=== PATIENT | male | born 1945 | race Caucasian/White ===

== ENCOUNTER → 2020-09-21 | Outpatient (CLI) | payer BC, OTHER ==
--- NOTE | 2020-09-22 11:00 | ECHOF ---
Referral Reason:I42.9 Cardiomyopathy MEASUREMENTS -------- HEIGHT: 170.2 cm WEIGHT: 74.4 kg BP: 178/86 RVIDd: 3.2 cm (< 3.3) IVSd: 1.3 cm (0.6 - 1.1) LVIDd: 4.7 cm (3.9 - 5.3) LVPWd: 1.1 cm (0.6 - 1.1) IVSs: 1.7 cm LVIDs: 3.1 cm LVPWs: 1.7 cm LA Diam: 3.6 cm (2.7 - 3.8) LAESV Index (A-L): 28.12 ml/m Ao Diam: 3.4 cm (2.0 - 3.7) AV Cusp: 1.5 cm (1.5 - 2.6) MV EXCURSION: 18.872 mm (> 18.000) MV EF SLOPE: 73 mm/s (70 - 150) EPSS: 1.4 cm MV E Ronn: 1.26 m/s MV DecT: 125 ms MV A Ronn: 1.10 m/s MV E/A Ratio: 1.14 AR PHT: 598 ms RAP: 5.00 mmHg RVSP: 31.33 mmHg FINDINGS -------- Sinus rhythm. This was a technically good study. The left ventricular size is normal. There is mild concentric left ventricular hypertrophy. Overa ll left ventricular systolic function is normal with, an EF between 60 - 65 %. The right ventricle is normal in size. Normal LA size by volume 22+/-6 ml/m2. The right atrium is normal in size. Interatrial and interventricular septum intact. There is mild aortic valve sclerosis. There is mild aortic regurgitation. The mitral valve leaflets are mildly thickened. Mild mitral annular calcification present. Mild-t o-moderate mitral regurgitation is present. Mild tricuspid regurgitation present. Right ventricular systolic pressure is normal at < 35 mmHg. Trace/mild (physiologic) pulmonic regurgitation. The aortic root size is normal. IVC Not well visulized. There is no pericardial effusion. CONCLUSIONS -------- 1. The left ventricular size is normal. 2. There is mild concentric left ventricular hypertrophy. 3. Overall left ventricular systolic function is normal with, an EF between 60 - 65 %. 4. There is mild aortic valve sclerosis. 5. There is mild aortic regurgitation. 6. The mitral valve leaflets are mildly thickened. 7. Mild mitral annular calcification present. 8. [id number] mitral regurgitation is present. 9. Mild tricuspid regurgitation present. 10. Trace/mild (physiologic) pulmonic regurgitation. 11. There is no pericardial effusion. ENGRAVER LETTER: Toma Bergman RDCS
== END | disposition home or self-care (01) ==
LOC: RADECHMAIN 16:07
PROVIDERS: ATTEND Family Medicine
DX: I08.3 Combined rheumatic disorders of mitral, aortic and tricuspid valves (principal); I37.1 Nonrheumatic pulmonary valve insufficiency
CPT/HCPCS: 93306

== ENCOUNTER → 2023-06-14 | Outpatient (CLI) | payer OTHER ==
--- NOTE | 2023-06-18 11:56 | MR ---
EXAMINATION TYPE: MR kidney wo/w con DATE OF EXAM: 06/14/2023 6:52 AM CLINICAL INDICATION:Male, 77 years old with history of D41.02 LEFT RENAL MASS; COMPARISON: CT scan abdomen from 06/04/2023 outside institution.. TECHNIQUE: Multiplanar multi-sequence imaging was performed without contrast. Post contrast imaging was performed. Post IV contrast subtraction images were also submitted for review. IV Contrast: 7 cc Gadavist FINDINGS: LOWER CHEST: No gross irregularity. ABDOMEN Liver: No evidence for hepatic steatosis or cirrhosis. Gallbladder and Bile ducts: No evidence for ductal dilation, or biliary stricture or evidence of chol edocholithiasis. The gallbladder is within normal limits. Pancreas: No ductal dilation. No evidence for solid mass. Spleen: Normal for size. Adrenal glands: Unremarkable. Kidneys: Right upper pole renal mass measuring 6.8 x 5.3 x 7.2 cm is predominantly exophytic with ext ension down into the mid kidney. No evidence for extension into the vein at this time. There is signa l dropout on chemical shift of phase imaging compatible with microscopic fat. Adjacent to this large mass medially is a high T1 pronation/hemorrhagic cyst measuring up to 13 mm without postcontrast enha ncement. Resolution of prior left-sided hydronephrosis. No suspicious left renal masses. Stomach and Bowel: No evidence for bowel wall thickening or evidence for obstruction.. Peritoneum: No evidence of pneumoperitoneum or free fluid. Vasculature: No aortic aneurysm. Musculoskeletal: The osseous structures appear intact. Lymph Nodes: No gross evidence for lymphadenopathy. Abdominal wall: Unremarkable. IMPRESSION: Findings are confirmed with left renal superior pole mass measuring up to 7.2 cm which is partially e xophytic and is most compatible with renal cell carcinoma until proven otherwise. Urology consultatio n if not already performed is recommended. No evidence for metastatic disease at this time.
== END | disposition home or self-care (01) ==
LOC: RADMRIMAIN 05:57
PROVIDERS: ATTEND Urology
DX: D41.02 Neoplasm of uncertain behavior of left kidney (principal)
CPT/HCPCS: 74183; A9585

== ENCOUNTER → 2023-07-02 | Outpatient (CLI) | payer OTHER ==
[2023-07-02 16:55] LABS: HCT 41.4 % (39.6-50.0); HGB 13.4 d/dL (13.0-17.0); MCH 31.3 pg (27.0-32.0); MCHC 32.4 d/dL (32.0-37.0); MCV 96.7 FL (80.0-97.0); Mean Platelet Volume 11.3 FL (9.5-12.2); NRBC Per 100 WBC 0 X 10*3/uL (0.00-0.01); Platelet Count 273 X 10*3/uL (140-440); RBC 4.28 X 10*6/uL (4.40-5.60); RDW 12.6 % (11.5-14.5); WBC 8.55 X 10*3/uL (4.50-10.00)
[2023-07-02 19:09] LABS: BUN/Creat Ratio 18.06 Ratio (12.00-20.00); Blood Urea Nitrogen 30.7 mg/dL (9.0-27.0); Calcium 10.1 mg/dL (8.7-10.3); Carbon Dioxide 24.4 mmol/L (21.6-31.8); Chloride 105 mmol/L (96-109); Glucose 94 mg/dL (70-110); Potassium 4.9 mmol/L (3.5-5.5); Sodium 140 mmol/L (135-145)
== END | disposition home or self-care (01) ==
LOC: LABWHC1 09:20
PROVIDERS: ATTEND Urology
DX: Z01.812 Encounter for preprocedural laboratory examination (principal); D41.01 Neoplasm of uncertain behavior of right kidney
CPT/HCPCS: 36415; 80048; 85027; 86850; 86900; 86901

== ENCOUNTER 2023-07-10 05:40 | Inpatient (IN) | payer OTHER ==
--- NOTE | 2023-07-06 08:00 | P.HPIHPCON ---
History of Present Illness H&P Date: 07/06/23 Chief Complaint: Right-sided renal mass This is a 77-year-old male with history of a 7.2 cm right-sided renal mass. I reviewed the images with him I discussed with him this is highly concerning for renal cell carcinoma. Discussed given the size of the mass and the degree of invasion is not amenable to a partial nephrectomy. Option of a radical nephrectomy was discussed with him in details. Discussed given his previous abdominal surgery this will be challenging to do this robotically an open approach as the alternative. Discussed risk of bleeding, infection, injury to nearby organs. Discussed also potential of needing additional treatments for his cancer, and potential of cancer recurrence. Discussed also potential that he might require hemodialysis in the short and shelter following the nephrectomy. Risk of anesthesia was also discussed. He understood all the risk and agreed to proceed Consent for Procedure: I have explained the operation/procedure to the patient, including the risks, benefits, side effects, alternative therapies (including not receiving the proposed treatment or service), the likelihood of the patient achieving his/her goals, and potential recuperation problems for the procedure/sedation/analgesia, as well as any blood products, if indicated. I also explained to the patient the risks, benefits and side effects of the alternatives, as well as the risks related to not receiving the proposed procedure, care, treatment, or services. Past Medical History Past Medical History: Osteoarthritis (OA) Additional Past Medical History / Comment(s): KNEE PAIN. History of Any Multi-Drug Resistant Organisms: None Reported Past Surgical History: Back Surgery Additional Past Surgical History / Comment(s): ABDOMINAL SURGERY AFTER FOOD STUCK IN ESOPAGUS?- STATES HE HAD MESH AND HAD TO HAVE SURGERY AGAIN. Past Anesthesia/Blood Transfusion Reactions: No Reported Reaction Past Psychological History: No Psychological Hx Reported Smoking Status: Former smoker Past Alcohol Use History: None Reported Past Drug Use History: None Reported - Past Family History Father Family Medical History: Cancer Additional Family Medical History / Comment(s): LUNG CANCER Medications and Allergies Home Medications Medication Instructions Recorded Confirmed Type Ibuprofen [Advil] 400 mg PO Q8HR PRN 02/14/16 02/15/16 History Acetaminophen [Tylenol] 325 mg PO Q4H 02/15/16 02/15/16 History Allergies Allergy/AdvReac Type Severity Reaction Status Date / Time Penicillins Allergy Unknown Rash/Hives Verified 06/05/23 10:52 Surgical - Exam - General no distress, no pain - Eyes normal ocular movement, no pale - ENT normal nares, normal mucosa - Respiratory normal expansion, normal respiratory effort - Abdomen Abdomen: soft, non tender, no distended Assessment and Plan Assessment: Or for open right radical nephrectomy
[~2023-07-10 05:40] MED LIST: CLINDAMYCIN 600 MG in DEXTROSE 5% IN WATER 50 ML IVPB PRN; DEXAMETHASONE SOD PHOSPHATE 4 MG/ML 1 ML VIAL IV ONE; GENTAMICIN 120 MG in SODIUM CHLORIDE 0.9% 100 ML IVPB PRN; HYDROmorphone 0.5 MG/0.5 ML SYRINGE IVP PRN; LIDOCAINE 1% (10MG/ML) FOR IV START INTRADERMA PRN; MIDAZOLAM 2 MG/2 ML VIAL IV PRN; ONDANSETRON 4 MG/2 ML VIAL IVP ONE
[2023-07-10] MEDS ORDERED: LACTATED RINGERS 1,000 ML IV ONE ×4 (06:06→08:17)
[2023-07-10 06:59] LABS: African American GFR (CKD) 49 (>60 ml/min/1.73 sqM); Anion Gap 11 mmol/L; Blood Urea Nitrogen 31 mg/dL (9-20); Calcium 10.1 mg/dL (8.4-10.2); Carbon Dioxide 23 mmol/L (22-30); Chloride 108 mmol/L (98-107); Glucose 78 mg/dL (74-99); Non-African American GFR(CKD) 42 (>60 ml/min/1.73 sqM); Sodium 142 mmol/L (137-145)
[2023-07-10 07:00] LABS: Potassium 4.7 mmol/L (3.5-5.1)
[2023-07-10] MEDS ORDERED: NEOSTIGMINE 1 MG/ML 10 ML VIAL ONE (07:11)
[2023-07-10] MEDS ORDERED: ePHEDrine 50 MG/ML 1 ML VIAL ONE (07:11)
[2023-07-10] MEDS ORDERED: ROCURONIUM 10 MG/ML (5 ML VIAL) IV ONE (07:11)
[2023-07-10] MEDS ORDERED: ALBUMIN HUMAN 5% (12.5gm) 250 ML BOTTLE IVPB ONE (07:11)
[2023-07-10] MEDS ORDERED: HEPARIN SODIUM,PORCINE 5,000 UNIT/ML 1 ML VIAL ONE (07:11)
[2023-07-10] MEDS ORDERED: GLYCOPYRROLATE 0.2 MG/ML 2 ML VIAL ONE (07:11)
[2023-07-10] MEDS ORDERED: PROPOFOL 10 MG/ML 20 ML VIAL IV ONE (07:11)
[2023-07-10] MEDS ORDERED: LIDOCAINE 1% INJ 10MG/ML (20 ML MDV) ONE (07:11)
[2023-07-10] MEDS ORDERED: PHENYLEPHRINE 10 MG/ML 5 ML VIAL ONE (07:11)
[2023-07-10] MEDS ORDERED: SUCCINYLCHOLINE CHLORIDE 200 MG/10 ML VIAL IV ONE (07:11)
[2023-07-10] MEDS ORDERED: fentaNYL (PF) 50 MCG/ML 2 ML AMP ONE (07:11)
[2023-07-10] MEDS ORDERED: ONDANSETRON 4 MG/2 ML VIAL IVP PRN (07:24)
[2023-07-10 07:27] LABS: INR 0.9 (<1.2)
[2023-07-10] MEDS ORDERED: ROPIVACAINE 250 MG, HYDROMORPHONE (PF) 5 MG in SODIUM CHLORIDE 0.9% 200 ML EPIDURAL PRN (08:12)
[2023-07-10] MEDS ORDERED: NALOXONE 0.4 MG/ML 1 ML VIAL IV PRN ×2 (08:12)
[2023-07-10] MEDS ORDERED: VIT D PO SCH (09:00)
--- NOTE | 2023-07-10 09:30 | P.OP ---
Date of Procedure: 07/10/23 Preoperative Diagnosis: Right renal mass Postoperative Diagnosis: Same Procedure(s) Performed: Right open radical nephrectomy Estimated Blood Loss (ml): 250 Indications for Procedure: This is a 77-year-old male with history of a 7.2 cm right-sided renal mass. I reviewed the images with him I discussed with him this is highly concerning for renal cell carcinoma. Discussed given the size of the mass and the degree of invasion is not amenable to a partial nephrectomy. Option of a radical nephrectomy was discussed with him in details. Discussed given his previous abdominal surgery this will be challenging to do this robotically an open approach as the alternative. Discussed risk of bleeding, infection, injury to nearby organs. Discussed also potential of needing additional treatments for his cancer, and potential of cancer recurrence. Discussed also potential that he might require hemodialysis in the short and [facility] following the nephrectomy. Risk of anesthesia was also discussed. He understood all the risk and agreed to proceed Description of Procedure: The patient was taken to the operating room and placed in the supine position. After being given general anesthesia, the abdomen was prepped and draped sterilely. A right-sided chevron incision was made using the scalpel. The Bovie electrocautery was used to incise the subcutaneous tissues and muscular layers of the abdominal wall down to the peritoneum. The peritoneum was then carefully entered, and opened the full length of the incision. The abdomen was examined, and no abnormalities were noted other than the renal mass. Specifically, there was no evidence of malignancy elsewhere within the abdomen. The Bookwalter retractor was used for exposure. Adhesion along the upper qu adrant was taken down sharply using Metzenbaums. The peritoneum was incised at the line of Toldt, and a Mckenzie maneuver was performed. This exposed the right kidney and the inferior vena cava. The gonadal vein was isolated. It was then ligated using 2-0 silk ties and divided. Dissection was then performed alongside the lateral aspect of the inferior vena cava. Lymphoadipose tissue was clipped and divided up to the renal hilum. There was no evidence of adenopathy. 1 right renal arteries were identified. Both were ligated twice proximally and once distally using 2-0 silk ties and divided. The right renal vein was then likewise ligated twice proximally and distally. The remaining hilar tissues were clipped and divided at this time. Once the hilar dissection had been completed, the inferior aspect of the dissection was performed. The tail of Gerota's fascia was isolated, and the ureter was clipped and divided. Blunt dissection was then performed to dissect the kidney off of the posterior abdominal wall. Superiorly, the perinephric fat was divided down to the upper pole of the kidney. The remaining dissection was then performed over the superior aspect of the kidney, thus preserving the right adrenal gland. The superior attachments were clipped prior to dividing them. Once all attachments were divided, the specimen was removed. The surgical field was examined for hemostasis. Hemostasis within the entire surgical field was excellent at this time. The renal bed was irrigated with warm sterile water. The Bookwalter retractor was removed. The abdominal contents were allowed to return to their normal location. Each individual muscle layer of the anterior abdominal wall was closed using #1 PDS suture in a running fashion. Hemostasis within the subcutaneous tissues was excellent. The skin was closed using kailey. A sterile gauze dressing was applied over the incision. All sponge and needle counts were correct. The patient tolerated the procedure well was taken to the recovery room in stable condition.
[2023-07-10] MEDS: ROPIVACAINE 250 MG, HYDROMORPHONE (PF) 5 MG in SODIUM CHLORIDE 0.9% 200 ML EPIDURAL PRN ×2 (09:36→12:15)
[2023-07-10] MEDS: DEXTROSE 5%-0.45% NACL 1,000 ML IV SCH ×3 (13:14→23:58)
[2023-07-10] MEDS: LACTATED RINGERS 1,000 ML IV SCH (13:14)
[2023-07-10] MEDS: lisinopriL 20 MG TAB PO SCH (14:21)
[2023-07-10] MEDS: methocarbamoL 750 MG TAB PO SCH ×3 (14:21→20:37)
[2023-07-10] MEDS: TAMSULOSIN 0.4 MG CAP.ER.24H PO SCH (14:21)
[2023-07-10] MEDS: HEPARIN SODIUM,PORCINE 5,000 UNIT/ML 1 ML VIAL SQ SCH ×2 (16:01→23:58)
[2023-07-10] MEDS: diphenhydrAMINE 25 MG CAP PO PRN (20:37)
[2023-07-11] MEDS: LACTATED RINGERS 1,000 ML IV SCH (05:39)
[2023-07-11] MEDS: DEXTROSE 5%-0.45% NACL 1,000 ML IV SCH ×3 (06:29→23:14)
--- NOTE | 2023-07-11 06:58 | P.PN ---
Progress Note - Text Progress Note Date: 07/11/23 Postoperative day #1 status post right radical nephrectomy epidural catheter placed for postoperative analgesia, patient doing well epidural site okay, patient currently on combination of epidural infusion solution of Ropivacaine 0.0625% and Dilaudid 20 g per mL the infusion rate at 8 ml per hour , patient had no motor deficit epidural site okay , vital signs stable ,VAS 2-3 /10 , Assessment and plan= post operative day # 1 patient doing well ,pain well controlled , there is no anesthesia related complications
[2023-07-11] MEDS: HEPARIN SODIUM,PORCINE 5,000 UNIT/ML 1 ML VIAL SQ SCH ×3 (10:08→23:14)
[2023-07-11] MEDS: lisinopriL 20 MG TAB PO SCH (10:08)
[2023-07-11] MEDS: methocarbamoL 750 MG TAB PO SCH ×4 (10:08→21:03)
[2023-07-11] MEDS: TAMSULOSIN 0.4 MG CAP.ER.24H PO SCH (10:08)
[2023-07-11 10:53] LABS: HCT 31.6 % (39.6-50.0); HGB 10.3 d/dL (13.0-17.0); MCH 31.1 pg (27.0-32.0); MCHC 32.6 d/dL (32.0-37.0); MCV 95.5 FL (80.0-97.0); Mean Platelet Volume 11.1 FL (9.5-12.2); NRBC Per 100 WBC 0 X 10*3/uL (0.00-0.01); Platelet Count 191 X 10*3/uL (140-440); RBC 3.31 X 10*6/uL (4.40-5.60); RDW 12.4 % (11.5-14.5); WBC 14.34 X 10*3/uL (4.50-10.00)
[2023-07-11 11:18] LABS: BUN/Creat Ratio 10.87 Ratio (12.00-20.00); Blood Urea Nitrogen 33.7 mg/dL (9.0-27.0); Calcium 8.7 mg/dL (8.7-10.3); Carbon Dioxide 21.4 mmol/L (21.6-31.8); Chloride 100 mmol/L (96-109); Glucose 101 mg/dL (70-110); Potassium 5.2 mmol/L (3.5-5.5); Sodium 132 mmol/L (135-145)
--- NOTE | 2023-07-11 13:48 | P.PN ---
Subjective Progress Note Date: 07/11/23 Had some confusion overnight, pain is controlled denies any nausea or vomiting. Is tolerating clear liquid diet Objective - Vital Signs Vital signs: Vital Signs Temp 98.0 F 07/11/23 07:32 Pulse 108 H 07/11/23 07:32 Resp 17 07/11/23 07:32 BP 91/51 07/11/23 07:32 Pulse Ox 92 L 07/11/23 07:32 FiO2 Intake & Output 07/10/23 07/11/23 07/11/23 18:59 06:59 18:59 Intake Total 1925 1500 Output Total 1000 300 Balance 925 1200 Weight 70.9 kg Intake: IV 1925 Intake, IV Titration 1500 Amount Dextrose 5%-0.45% NaCl 1, 1500 000 ml @ 125 mls/hr IV . Q8H KEELEY Rx#:[id number] Output: Urine 750 300 Estimated Blood Loss 250 Other: Voiding Method Indwelling Catheter Indwelling Catheter Indwelling Catheter # Voids 1 - Constitutional General appearance: Present: no acute distress - Gastrointestinal General gastrointestinal: Present: soft. Absent: distended, tenderness - Psychiatric Psychiatric: Present: A&O x's 3 - Labs CBC & Chem 7: 07/11/23 07:00 07/11/23 07:00 Labs: Abnormal Lab Results - Last 24 Hours (Table) 07/11/23 07/11/23 Range/Units 07:00 07:00 WBC 14.34 H (4.50-10.00) X 10*3/uL RBC 3.31 L (4.40-5.60) X 10*6/uL Hgb 10.3 L (13.0-17.0) d/dL Hct 31.6 L (39.6-50.0) % Sodium 132 L (135-145) mmol/L Carbon Dioxide 21.4 L (21.6-31.8) mmol/L BUN 33.7 H (9.0-27.0) mg/dL Creatinine 3.1 H (0.6-1.5) mg/dL Est GFR (CKD-EPI) 20 L (>=60) BUN/Creatinine Ratio 10.87 L (12.00-20.00) Ratio Assessment and Plan Assessment: S/P open right radical nephrectomy -Advance regular diet -Pain control -Ambulate -Repeat BMP tomorrow
[2023-07-11] MEDS: ROPIVACAINE 250 MG, HYDROMORPHONE (PF) 5 MG in SODIUM CHLORIDE 0.9% 200 ML EPIDURAL PRN (14:18)
[2023-07-11] MEDS: diphenhydrAMINE 25 MG CAP PO PRN (16:46)
[2023-07-12] MEDS: diphenhydrAMINE 25 MG CAP PO PRN ×2 (01:35→21:06)
[2023-07-12] MEDS: LACTATED RINGERS 1,000 ML IV SCH (05:22)
[2023-07-12] MEDS: DEXTROSE 5%-0.45% NACL 1,000 ML IV SCH (06:45)
--- NOTE | 2023-07-12 07:38 | P.PN ---
Progress Note - Text Progress Note Date: 07/12/23 ([id number]) Anesthesia Postop day #2 Status post open radical nephrectomy with epidural day #3 Patient seen and examined. Doing well without complaint. VAS 3 out of 10. No nausea or vomiting. Slight pruritustolerable. Ropivacaine 0.1% with Dilaudid 20 mcg/mL at 4 cc an hour. Objective: Vital signs reviewed Lungs: Good chest excursion Abdomen: Appears nondistended Other: Epidural Site Intact without induration. Dressing intact Neuro: No apparent motor block. Sensory within normal limits. Assessment: Status post open radical nephrectomy postop day #2 Plan: Continue current care with your medical management. Anticipate discontinuation tomorrow. Current DVT prophylaxis heparin subcu every 8 hours. Platelets 191.
[2023-07-12 08:01] LABS: African American GFR (CKD) 15 (>60 ml/min/1.73 sqM); Anion Gap 11 mmol/L; Blood Urea Nitrogen 39 mg/dL (9-20); Calcium 8.5 mg/dL (8.4-10.2); Carbon Dioxide 19 mmol/L (22-30); Chloride 100 mmol/L (98-107); Glucose 85 mg/dL (74-99); Non-African American GFR(CKD) 13 (>60 ml/min/1.73 sqM); Potassium 5.3 mmol/L (3.5-5.1); Sodium 130 mmol/L (137-145)
--- NOTE | 2023-07-12 08:29 | P.PN ---
Subjective Progress Note Date: 07/12/23 Postop day #2 status post right open radical nephrectomy. pain is controlled denies any nausea or vomiting. His creatinine is now 4.04 Objective - Vital Signs Vital signs: Vital Signs Temp 98.2 F 07/12/23 07:20 Pulse 100 07/12/23 07:20 Resp 17 07/12/23 07:20 BP 113/72 07/12/23 07:20 Pulse Ox 93 L 07/12/23 07:20 FiO2 Intake & Output 07/11/23 07/12/23 07/12/23 18:59 06:59 18:59 Intake Total 56.0 1500 Output Total 600 500 Balance -544.0 1000 Intake: Intake, IV Titration 56.0 1500 Amount Dextrose 5%-0.45% NaCl 1, 1500 000 ml @ 125 mls/hr IV . Q8H KEELEY Rx#:[id number] Ropivacaine 250 mg 56.0 Hydromorphone (Pf) 5 mg In Sodium Chloride 0.9% 200 ml @ Per Protocol EPIDURAL .Q0M PRN Rx#: [id number] Output: Urine 600 500 Other: Voiding Method Indwelling Catheter Indwelling Catheter - Constitutional General appearance: Present: no acute distress - Gastrointestinal General gastrointestinal: Present: soft. Absent: distended, tenderness - Psychiatric Psychiatric: Present: A&O x's 3 - Labs CBC & Chem 7: 07/11/23 07:00 07/12/23 06:08 Labs: Abnormal Lab Results - Last 24 Hours (Table) 07/11/23 07/11/23 07/12/23 Range/Units 07:00 07:00 06:08 WBC 14.34 H (4.50-10.00) X 10*3/uL RBC 3.31 L (4.40-5.60) X 10*6/uL Hgb 10.3 L (13.0-17.0) d/dL Hct 31.6 L (39.6-50.0) % Sodium 132 L 130 L (135-145) mmol/L Potassium 5.3 H (3.5-5.1) mmol/L Carbon Dioxide 21.4 L 19 L (21.6-31.8) mmol/L BUN 33.7 H 39 H (9.0-27.0) mg/dL Creatinine 3.1 H 4.04 H (0.6-1.5) mg/dL Est GFR (CKD-EPI) 20 L (>=60) BUN/Creatinine Ratio 10.87 L (12.00-20.00) Ratio Assessment and Plan Assessment: S/P open right radical nephrectomy - regular diet -Pain control -Ambulate -Given solitary kidney and continued creatinine elevation we will consult nephrology
[2023-07-12] MEDS: TAMSULOSIN 0.4 MG CAP.ER.24H PO SCH (10:22)
[2023-07-12] MEDS: methocarbamoL 750 MG TAB PO SCH ×4 (10:23→21:06)
[2023-07-12] MEDS: HEPARIN SODIUM,PORCINE 5,000 UNIT/ML 1 ML VIAL SQ SCH ×2 (10:23→17:44)
[2023-07-12] MEDS: lisinopriL 20 MG TAB PO SCH (10:23)
--- NOTE | 2023-07-12 11:39 | P.NPCON ---
History of Present Illness - Reason for Consult acute renal failure, chronic renal failure - History of Present Illness Reason for consultation: Acute kidney injury on chronic kidney disease History of present illness: Patient is a 77-year-old male seen in renal consultation for acute kidney injury on chronic kidney disease. Patient's creatinine was 1.6 dated 06/20/2023. This admission was 1.56 and is up to 4.04 today. Patient was noted to have right renal mass and underwent right open radical nephrectomy on 07/10/2023 by urology. Blood pressure is stable although readings as low as 91/58 and 90/53 are noted from this admission. Patient is receiving lisinopril and received a dose this morning. Denies use of nonsteroidals. Denies history of diabetes or coronary artery disease. No family history of renal disease. No vomiting or diarrhea. Oral intake fair. Has Babin catheter. Nonoliguric. No chest pain or shortness of breath. No edema. Denies personal history of kidney disease. 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 Vital signs are stable. General: No acute distress. HEENT: Head exam is unremarkable. LUNGS: No audible rhonchi or wheezes. HEART: Rate and Rhythm are regular. ABDOMEN: Nontender. EXTREMITITES: No edema. Past Medical History Past Medical History: Cancer, Deep Vein Thrombosis (DVT), Hypertension, Osteoarthritis (OA) Additional Past Medical History / Comment(s): KNEE PAIN., kidney, many years ago had blood clot, History of Any Multi-Drug Resistant Organisms: None Reported Past Surgical History: Back Surgery, Cholecystectomy Additional Past Surgical History / Comment(s): ABDOMINAL SURGERY AFTER FOOD STUCK IN ESOPHAGUS?- STATES HE HAD MESH AND HAD TO HAVE SURGERY AGAIN. Past Anesthesia/Blood Transfusion Reactions: No Reported Reaction Past Psychological History: No Psychological Hx Reported Smoking Status: Former smoker Past Alcohol Use History: None Reported Additional Past Alcohol Use History / Comment(s): SMOKED 1 1/2 PPD FOR 15 1/2 YEARS. QUIT SMOKING 1977. Past Drug Use History: None Reported - Past Family History Father Family Medical History: Cancer Additional Family Medical History / Comment(s): LUNG CANCER Medications and Allergies Home Medications Medication Instructions Recorded Confirmed Type Lisinopril (Unk) 20 mg PO DAILY 07/09/23 07/09/23 History [place] 3 (Unk) 1 tab PO DAILY 07/09/23 07/09/23 History Tamsulosin HCl [Flomax] 1 tab PO DAILY 07/09/23 07/09/23 History Vit D(Unk) 1 tab PO DAILY 07/09/23 07/09/23 History Allergies Allergy/AdvReac Type Severity Reaction Status Date / Time Penicillins Allergy Unknown Rash/Hives Verified 07/09/23 09:54 Physical Exam Vitals: Vital Signs Temp Pulse Resp BP Pulse Ox 07/12/23 08:36 100 17 07/12/23 07:20 98.2 F 100 17 113/72 93 L 07/11/23 23:42 98.8 F 110 H 16 130/69 93 L 07/11/23 20:00 98.2 F 106 H 19 123/71 07/11/23 13:50 98.3 F 109 H 16 91/58 92 L Intake and Output 07/11/23 07/12/23 07/12/23 22:59 06:59 14:59 Intake Total 15.8 1500 120 Output Total 600 500 Balance -584.2 1000 120 Intake: Intake, IV Titration 15.8 1500 Amount Dextrose 5%-0.45% NaCl 1, 1500 000 ml @ 125 mls/hr IV . Q8H KEELEY Rx#:[id number] Ropivacaine 250 mg 15.8 Hydromorphone (Pf) 5 mg In Sodium Chloride 0.9% 200 ml @ Per Protocol EPIDURAL .Q0M PRN Rx#: [id number] Oral 120 Output: Urine 600 500 Other: Voiding Method Indwelling Catheter Indwelling Catheter Results - Lab Results Most recent lab results Calcium 8.5 mg/dL (8.4-10.2) 07/12/23 06:08 07/11/23 07:00 07/12/23 06:08 Assessment and Plan Plan: Assessment: 1. Acute kidney injury secondary to ATN secondary to hypotension, further worsened with the use of lisinopril. Creatinine 1.56 on admission and is 4.04 today. 2. Chronic kidney disease stage IIIB with baseline creatinine near 1.5 secondary to nephrosclerosis and solitary kidney. 3. Right renal mass status post nephrectomy 07/10/2023. 4. Hyperkalemia secondary to acute kidney injury, acidosis and lisinopril. 5. Metabolic acidosis secondary to acute kidney injury. 6. Hyponatremia secondary to acute kidney injury and hypotonic fluid infusion. Plan: Change IV fluids to normal saline at 75 mL an hour. Stop lisinopril. Check bladder scan to rule out urinary retention. Check renal ultrasound. Avoid nephrotoxins. Continue to monitor renal function and urine output. Check urinalysis. Thank you for the consultation. I'll continue to follow the patient with you during his hospital stay.
[2023-07-12] MEDS: SODIUM BICARBONATE TAB 650 MG TAB PO SCH ×2 (13:24→21:06)
[2023-07-12] MEDS: SODIUM CHLORIDE 0.9% 1,000 ML IV SCH (13:24)
--- NOTE | 2023-07-12 13:59 | US ---
EXAMINATION TYPE: US kidneys/renal and bladder DATE OF EXAM: 07/12/2023 COMPARISON: MR kidney 06/14/2023. 2523. CLINICAL INDICATION: Male, 77 years old with history of pilo; Hx of right renal mass with renal remova l x 2 days ago. Bladder castillo. EXAM MEASUREMENTS: Left Kidney: 8.9 x 5.0 x 3.7 cm Right Kidney: Surgically absent Left Kidney: No hydronephrosis or masses seen Bladder: Castillo visualized Bilateral Jets not seen due to castillo. Incidental finding: free fluid seen in pelvis. There is no evidence for hydronephrosis at this point in time. No nephrolithiasis is seen. No alexandro s are identified. The urinary bladder is anechoic. Bilateral ureteral jets are seen. IMPRESSION: 1. No evidence for left hydronephrosis. 2. The right kidney surgically absent. No obvious persistent mass given Limited ultrasound technique . 3. Castillo catheter in place.
[2023-07-12 19:36] LABS: Appearance,Urine Clear (Clear); Bacteria,Urine Occasional /hpf; Bilirubin,Urine Negative (Negative); Blood,Urine Moderate (Negative); Color,Urine Colorless; Glucose,Urine (UA) Negative (Negative); Ketones,Urine Negative (Negative); Leukocyte Esterase,Urine Large (Negative); Mucus,Urine Rare /hpf; Nitrite,Urine Negative (Negative); PH, Urine 5.5 (5.0-8.0); Protein,Urine 1+ (Negative); RBC,Urine 8 /hpf (0-5); Specific Gravity,Urine 1.007 (1.001-1.035); Urobilinogen,Urine <2.0 mg/dL (<2.0); WBC,Urine 7 /hpf (0-5)
[2023-07-13] MEDS: HEPARIN SODIUM,PORCINE 5,000 UNIT/ML 1 ML VIAL SQ SCH ×3 (00:55→15:36)
[2023-07-13] MEDS: SODIUM CHLORIDE 0.9% 1,000 ML IV SCH ×2 (02:14→13:50)
[2023-07-13] MEDS: LACTATED RINGERS 1,000 ML IV SCH (02:14)
[2023-07-13 09:40] LABS: African American GFR (CKD) 12 (>60 ml/min/1.73 sqM); Anion Gap 11 mmol/L; Blood Urea Nitrogen 46 mg/dL (9-20); Calcium 8.3 mg/dL (8.4-10.2); Carbon Dioxide 17 mmol/L (22-30); Chloride 104 mmol/L (98-107); Glucose 76 mg/dL (74-99); Magnesium 1.8 mg/dL (1.6-2.3); Non-African American GFR(CKD) 11 (>60 ml/min/1.73 sqM); Potassium 5.5 mmol/L (3.5-5.1); Sodium 132 mmol/L (137-145)
[2023-07-13] MEDS: SODIUM BICARBONATE TAB 650 MG TAB PO SCH ×2 (09:47→21:07)
[2023-07-13] MEDS: methocarbamoL 750 MG TAB PO SCH ×4 (09:47→21:07)
[2023-07-13] MEDS: TAMSULOSIN 0.4 MG CAP.ER.24H PO SCH (09:47)
[2023-07-13 10:39] LABS: Basophils % (A) 0 %; Eosinophils # (A) 0.3 k/uL (0-0.7); Eosinophils % (A) 3 %; HCT 32.6 % (39.0-53.0); HGB 10.9 gm/dL (13.0-17.5); Lymphocytes # (A) 0.9 k/uL (1.0-4.8); Lymphocytes % (A) 10 %; MCH 32.2 pg (25.0-35.0); MCHC 33.4 g/dL (31.0-37.0); MCV 96.3 fL (80.0-100.0); Mean Platelet Volume 8.9; Monocytes # (A) 0.5 k/uL (0-1.0); Monocytes % (A) 5 %; Neutrophils # (A) 7.4 k/uL (1.3-7.7); Neutrophils % (A) 81 %; Platelet Count 197 k/uL (150-450); RBC 3.38 m/uL (4.30-5.90); RDW 12.1 % (11.5-15.5); WBC 9.2 k/uL (3.8-10.6)
--- NOTE | 2023-07-13 11:14 | P.PN ---
Progress Note - Text 07/13/23 651am 77-year-old male status post radical nephrectomy by Dr. biggs, patient has an epidural catheter for postop pain control with the solution running at 4 mL an hour with a VAS of 3. Patient has no motor or sensory deficit, dressing clean dry and intact. Plan to DC epidural nurse informed
--- NOTE | 2023-07-13 11:20 | P.ANPRN ---
Procedure Note - Anesthesia - Epidural/Spinal Epidural Continuous Time Out Performed: Yes Date of Procedure: 07/13/23 Procedure Start Time: 10:14 Procedure Stop Time: 10:20 Location of Patient: PreOp Indication: Acute Post-Operative Pain, Requested by Surgeon Sedation Type: Sedate with meaningful contact maintained Preparation: Sterile Dressing Position: Sitting Catheter: Indwelling Needle Guage: 18 Blood Aspirated: No Pain Paresthesia on Injection Noted: No Events: Uneventful and Well Tolerated (Xylocaine 1.5% plus epi 3 mL was given as a test dose with no adverse effect)
[2023-07-13] MEDS ORDERED: SODIUM BICARB 8.4% 50 ML SYR (1 MEQ/ML) IV STA (11:21)
[2023-07-13] MEDS ORDERED: SODIUM ZIRCONIUM CYCLOSILICATE 10 GM PACKET PO ONE (11:21)
--- NOTE | 2023-07-13 11:22 | P.PN ---
Subjective Patient is seen in follow-up for acute kidney injury. Renal function worsening. Lisinopril discontinued yesterday. Blood pressure on the higher side. Receiving IV fluids. Nonoliguric. Has Babin catheter. Vital signs are stable. General: No acute distress. HEENT: Head exam is unremarkable. LUNGS: No audible rhonchi or wheezes. HEART: Rate and Rhythm are regular. ABDOMEN: Nontender. EXTREMITITES: No edema. Objective - Vital Signs Vital signs: Vital Signs Temp 98.1 F 07/13/23 07:11 Pulse 114 H 07/13/23 07:11 Resp 18 07/13/23 07:11 BP 172/94 07/13/23 07:11 Pulse Ox 94 L 07/13/23 07:57 FiO2 Intake & Output 07/12/23 07/13/23 07/13/23 18:59 06:59 18:59 Intake Total 240 900 Output Total 700 1200 900 Balance -460 -300 -900 Intake: Intake, IV Titration 900 Amount Sodium Chloride 0.9% 1, 900 000 ml @ 75 mls/hr IV . [id number] [facility] Rx#:[id number] Oral 240 Output: Urine 700 1200 900 Other: Voiding Method Indwelling Catheter Indwelling Catheter Indwelling Catheter # Voids 1 - Labs CBC & Chem 7: 07/13/23 06:53 07/13/23 06:53 Labs: Abnormal Lab Results - Last 24 Hours (Table) 07/12/23 07/13/23 07/13/23 Range/Units 17:38 06:53 06:53 RBC 3.38 L (4.30-5.90) m/uL Hgb 10.9 L (13.0-17.5) gm/dL Hct 32.6 L (39.0-53.0) % Lymphocytes # 0.9 L (1.0-4.8) k/uL Sodium 132 L (137-145) mmol/L Potassium 5.5 H (3.5-5.1) mmol/L Carbon Dioxide 17 L (22-30) mmol/L BUN 46 H (9-20) mg/dL Creatinine 4.83 H (0.66-1.25) mg/dL Calcium 8.3 L (8.4-10.2) mg/dL Urine Protein 1+ H (Negative) Urine Blood Moderate H (Negative) Ur Leukocyte Esterase Large H (Negative) Urine RBC 8 H (0-5) /hpf Urine WBC 7 H (0-5) /hpf Urine Bacteria Occasional H (None) /hpf Urine Mucus Rare H (None) /hpf Assessment and Plan Plan: Assessment: 1. Acute kidney injury secondary to ATN secondary to hypotension, further worsened with the use of lisinopril. Creatinine 1.56 on admission and is 4.83 today. Nonoliguric. No hydronephrosis noted on kidney ultrasound. 2. Chronic kidney disease stage IIIB with baseline creatinine near 1.5 secondary to nephrosclerosis and solitary kidney. 3. Right renal mass status post nephrectomy 07/10/2023. 4. Hyperkalemia secondary to acute kidney injury, acidosis and lisinopril. 5. Metabolic acidosis secondary to acute kidney injury. 6. Hyponatremia secondary to acute kidney injury and hypotonic fluid infusion. Improved. Plan: Maintain IV fluids. Lisinopril discontinued 07/12/2023. Avoid nephrotoxins. Continue to monitor renal function and urine output. 2 A sodium bicarb IV push today. Lokelma 10 g once now.
--- NOTE | 2023-07-13 11:52 | P.PN ---
Subjective Postop day #3 status post right open radical nephrectomy. pain is controlled denies any nausea or vomiting. His creatinine is now 4.8, nephrology is consulted Objective - Vital Signs Vital signs: Vital Signs Temp 98.1 F 07/13/23 07:11 Pulse 114 H 07/13/23 07:11 Resp 18 07/13/23 07:11 BP 172/94 07/13/23 07:11 Pulse Ox 94 L 07/13/23 07:57 FiO2 Intake & Output 07/12/23 07/13/23 07/13/23 18:59 06:59 18:59 Intake Total 240 900 Output Total 700 1200 900 Balance -460 -300 -900 Intake: Intake, IV Titration 900 Amount Sodium Chloride 0.9% 1, 900 000 ml @ 75 mls/hr IV . [id number] [facility] Rx#:[id number] Oral 240 Output: Urine 700 1200 900 Other: Voiding Method Indwelling Catheter Indwelling Catheter Indwelling Catheter # Voids 1 - Constitutional General appearance: Present: no acute distress - Gastrointestinal General gastrointestinal: Present: soft. Absent: distended, tenderness - Psychiatric Psychiatric: Present: A&O x's 3 - Labs CBC & Chem 7: 07/13/23 06:53 07/13/23 06:53 Labs: Abnormal Lab Results - Last 24 Hours (Table) 07/12/23 07/13/23 07/13/23 Range/Units 17:38 06:53 06:53 RBC 3.38 L (4.30-5.90) m/uL Hgb 10.9 L (13.0-17.5) gm/dL Hct 32.6 L (39.0-53.0) % Lymphocytes # 0.9 L (1.0-4.8) k/uL Sodium 132 L (137-145) mmol/L Potassium 5.5 H (3.5-5.1) mmol/L Carbon Dioxide 17 L (22-30) mmol/L BUN 46 H (9-20) mg/dL Creatinine 4.83 H (0.66-1.25) mg/dL Calcium 8.3 L (8.4-10.2) mg/dL Urine Protein 1+ H (Negative) Urine Blood Moderate H (Negative) Ur Leukocyte Esterase Large H (Negative) Urine RBC 8 H (0-5) /hpf Urine WBC 7 H (0-5) /hpf Urine Bacteria Occasional H (None) /hpf Urine Mucus Rare H (None) /hpf Assessment and Plan Assessment: S/P open right radical nephrectomy -regular diet -Pain control -Ambulate -keep castillo catheter in place -PT/OT consult -Will discuss if anesthesia can d/c his epidural
[2023-07-13] MEDS ORDERED: hydrALAZINE HCL 20 MG/ML 1 ML VIAL IVP PRN (13:28)
[2023-07-13] MEDS: amLODIPine 5 MG TAB PO SCH ×2 (13:50→21:07)
[2023-07-13] MEDS: hydrALAZINE HCL 25 MG TAB PO SCH ×2 (15:36→21:07)
[2023-07-13] MEDS: HYDROmorphone 1 MG/ML 1 ML SYRINGE IVP PRN (17:56)
[2023-07-14 00:13] LABS: Glucose,Whole Blood 126 mg/dL (70-110)
[2023-07-14] MEDS: HEPARIN SODIUM,PORCINE 5,000 UNIT/ML 1 ML VIAL SQ SCH ×3 (01:10→16:07)
[2023-07-14] MEDS: SODIUM CHLORIDE 0.9% 1,000 ML IV SCH ×2 (08:11→17:52)
[2023-07-14 08:34] LABS: African American GFR (CKD) 12 (>60 ml/min/1.73 sqM); Anion Gap 8 mmol/L; Blood Urea Nitrogen 51 mg/dL (9-20); Calcium 8.4 mg/dL (8.4-10.2); Carbon Dioxide 20 mmol/L (22-30); Chloride 107 mmol/L (98-107); Glucose 97 mg/dL (74-99); Magnesium 1.9 mg/dL (1.6-2.3); Non-African American GFR(CKD) 11 (>60 ml/min/1.73 sqM); Potassium 5.5 mmol/L (3.5-5.1); Sodium 135 mmol/L (137-145)
[2023-07-14] MEDS: TAMSULOSIN 0.4 MG CAP.ER.24H PO SCH (10:08)
[2023-07-14] MEDS: methocarbamoL 750 MG TAB PO SCH ×4 (10:08→21:52)
[2023-07-14] MEDS: amLODIPine 5 MG TAB PO SCH ×2 (10:08→21:52)
[2023-07-14] MEDS: hydrALAZINE HCL 25 MG TAB PO SCH ×3 (10:08→21:52)
[2023-07-14] MEDS: SODIUM BICARBONATE TAB 650 MG TAB PO SCH ×2 (10:08→21:52)
--- NOTE | 2023-07-14 11:28 | P.PN ---
Subjective Patient is seen in follow-up for acute kidney injury. Renal function stable. Blood pressure stable. Receiving IV fluids. Nonoliguric. Has Babin catheter. Vital signs are stable. General: No acute distress. HEENT: Head exam is unremarkable. LUNGS: No audible rhonchi or wheezes. HEART: Rate and Rhythm are regular. ABDOMEN: Nontender. EXTREMITITES: No edema. Objective - Vital Signs Vital signs: Vital Signs Temp 97.9 F 07/14/23 07:13 Pulse 100 07/14/23 10:27 Resp 19 07/14/23 10:27 BP 157/93 07/14/23 07:13 Pulse Ox 97 07/14/23 07:13 FiO2 Intake & Output 07/13/23 07/14/23 07/14/23 18:59 06:59 18:59 Intake Total 194.6 Output Total 1999 300 Balance -1805.4 -300 Intake: Intake, IV Titration 194.6 Amount Ropivacaine 250 mg 194.6 Hydromorphone (Pf) 5 mg In Sodium Chloride 0.9% 200 ml @ Per Protocol EPIDURAL .Q0M PRN Rx#: [id number] Output: Urine 1999 300 Other: Voiding Method Indwelling Catheter Indwelling Catheter Indwelling Catheter # Voids 1 1 # Bowel Movements 1 - Labs CBC & Chem 7: 07/13/23 06:53 07/14/23 07:00 Labs: Abnormal Lab Results - Last 24 Hours (Table) 07/13/23 07/14/23 07/14/23 Range/Units 16:55 00:12 07:00 Sodium 135 L (137-145) mmol/L Potassium 5.2 H 5.5 H (3.5-5.1) mmol/L Carbon Dioxide 20 L (22-30) mmol/L BUN 51 H (9-20) mg/dL Creatinine 4.92 H (0.66-1.25) mg/dL POC Glucose (mg/dL) 126 H (70-110) mg/dL Assessment and Plan Plan: Assessment: 1. Acute kidney injury secondary to ATN secondary to hypotension, further worsened with the use of lisinopril. Creatinine 1.56 on admission and is 4.92 today. Nonoliguric. No hydronephrosis noted on kidney ultrasound. 2. Chronic kidney disease stage IIIB with baseline creatinine near 1.5 secondary to nephrosclerosis and solitary kidney. 3. Right renal mass status post nephrectomy 07/10/2023. 4. Hyperkalemia secondary to acute kidney injury, acidosis and lisinopril. 5. Metabolic acidosis secondary to acute kidney injury. Improved. 6. Hyponatremia secondary to acute kidney injury and hypotonic fluid infusion. Improved. Plan: Maintain IV fluids. Lisinopril discontinued 07/12/2023. Avoid nephrotoxins. Continue to monitor renal function and urine output. Maintain current antihypertensives. Hold for systolic blood pressure less than 120. Repeat lokelma 10 g once today.
--- NOTE | 2023-07-14 11:37 | P.PN ---
Subjective Postop day #4 status post right open radical nephrectomy. pain is controlled denies any nausea or vomiting. His creatinine is now 4.9, nephrology is consulted. Did have a BM this a.m. Objective - Vital Signs Vital signs: Vital Signs Temp 97.9 F 07/14/23 07:13 Pulse 100 07/14/23 10:27 Resp 19 07/14/23 10:27 BP 157/93 07/14/23 07:13 Pulse Ox 97 07/14/23 07:13 FiO2 Intake & Output 07/13/23 07/14/23 07/14/23 18:59 06:59 18:59 Intake Total 194.6 Output Total 1999 300 Balance -1805.4 -300 Intake: Intake, IV Titration 194.6 Amount Ropivacaine 250 mg 194.6 Hydromorphone (Pf) 5 mg In Sodium Chloride 0.9% 200 ml @ Per Protocol EPIDURAL .Q0M PRN Rx#: [id number] Output: Urine 1999 300 Other: Voiding Method Indwelling Catheter Indwelling Catheter Indwelling Catheter # Voids 1 1 # Bowel Movements 1 - Constitutional General appearance: Present: no acute distress - Gastrointestinal General gastrointestinal: Present: soft. Absent: distended, tenderness - Labs CBC & Chem 7: 07/13/23 06:53 07/14/23 07:00 Labs: Abnormal Lab Results - Last 24 Hours (Table) 07/13/23 07/14/23 07/14/23 Range/Units 16:55 00:12 07:00 Sodium 135 L (137-145) mmol/L Potassium 5.2 H 5.5 H (3.5-5.1) mmol/L Carbon Dioxide 20 L (22-30) mmol/L BUN 51 H (9-20) mg/dL Creatinine 4.92 H (0.66-1.25) mg/dL POC Glucose (mg/dL) 126 H (70-110) mg/dL Assessment and Plan Assessment: S/P open right radical nephrectomy -regular diet -Pain control -Ambulate -keep castillo catheter in place -From surgical standpoint he is cleared for discharge,
[2023-07-14] MEDS ORDERED: SODIUM ZIRCONIUM CYCLOSILICATE 10 GM PACKET PO ONE (12:00)
[2023-07-14] MEDS: HYDROmorphone 1 MG/ML 1 ML SYRINGE IVP PRN (14:44)
[2023-07-15] MEDS: HEPARIN SODIUM,PORCINE 5,000 UNIT/ML 1 ML VIAL SQ SCH ×3 (01:53→16:39)
[2023-07-15] MEDS: hydrALAZINE HCL 25 MG TAB PO SCH ×3 (07:54→21:29)
[2023-07-15] MEDS: SODIUM BICARBONATE TAB 650 MG TAB PO SCH ×3 (07:54→21:29)
[2023-07-15] MEDS: amLODIPine 5 MG TAB PO SCH ×2 (07:55→21:29)
[2023-07-15] MEDS: methocarbamoL 750 MG TAB PO SCH ×4 (07:55→21:29)
[2023-07-15] MEDS: TAMSULOSIN 0.4 MG CAP.ER.24H PO SCH (07:55)
[2023-07-15] MEDS: SODIUM CHLORIDE 0.9% 1,000 ML IV SCH ×2 (08:14→16:42)
[2023-07-15 09:09] LABS: African American GFR (CKD) 12 (>60 ml/min/1.73 sqM); Anion Gap 8 mmol/L; Blood Urea Nitrogen 55 mg/dL (9-20); Calcium 8.2 mg/dL (8.4-10.2); Carbon Dioxide 18 mmol/L (22-30); Chloride 106 mmol/L (98-107); Glucose 97 mg/dL (74-99); Magnesium 1.8 mg/dL (1.6-2.3); Non-African American GFR(CKD) 11 (>60 ml/min/1.73 sqM); Potassium 5.1 mmol/L (3.5-5.1); Sodium 132 mmol/L (137-145)
--- NOTE | 2023-07-15 10:12 | P.PN ---
Subjective Postop day #5 status post right open radical nephrectomy. pain is controlled denies any nausea or vomiting. His creatinine is stable now at 4.8, nephrology is consulted. He is ambulating Objective - Vital Signs Vital signs: Vital Signs Temp 97.6 F 07/15/23 07:05 Pulse 99 07/15/23 07:05 Resp 18 07/15/23 07:05 BP 157/87 07/15/23 07:05 Pulse Ox 96 07/15/23 07:05 FiO2 Intake & Output 07/14/23 07/15/23 07/15/23 19:59 06:59 18:59 Intake Total Output Total Balance Intake: Oral Output: Urine Other: Voiding Method # Voids - Constitutional General appearance: Present: no acute distress - Gastrointestinal General gastrointestinal: Present: soft. Absent: distended, tenderness - Labs CBC & Chem 7: 07/13/23 06:53 07/15/23 07:21 Labs: Abnormal Lab Results - Last 24 Hours (Table) 07/15/23 Range/Units 07:21 Sodium 132 L (137-145) mmol/L Carbon Dioxide 18 L (22-30) mmol/L BUN 55 H (9-20) mg/dL Creatinine 4.83 H (0.66-1.25) mg/dL Calcium 8.2 L (8.4-10.2) mg/dL Assessment and Plan Assessment: S/P open right radical nephrectomy -regular diet -Pain control -Ambulate -keep castillo catheter in place -From surgical standpoint he is cleared for discharge, will plan on removing the catheter prior to discharge
--- NOTE | 2023-07-15 11:54 | P.PN ---
Subjective Patient is seen in follow-up for acute kidney injury. Renal function stable. Blood pressure stable. Receiving IV fluids. Nonoliguric. Has Babin catheter. No changes overnight. Vital signs are stable. General: No acute distress. HEENT: Head exam is unremarkable. LUNGS: No audible rhonchi or wheezes. HEART: Rate and Rhythm are regular. ABDOMEN: Nontender. EXTREMITITES: No edema. Objective - Vital Signs Vital signs: Vital Signs Temp 97.6 F 07/15/23 07:05 Pulse 99 07/15/23 07:05 Resp 20 07/15/23 10:52 BP 157/87 07/15/23 07:05 Pulse Ox 96 07/15/23 07:05 FiO2 Intake & Output 07/14/23 07/15/23 07/15/23 19:59 06:59 18:59 Intake Total Output Total Balance Intake: Oral Output: Urine Other: Voiding Method Indwelling Catheter # Voids - Labs CBC & Chem 7: 07/13/23 06:53 07/15/23 07:21 Labs: Abnormal Lab Results - Last 24 Hours (Table) 07/15/23 Range/Units 07:21 Sodium 132 L (137-145) mmol/L Carbon Dioxide 18 L (22-30) mmol/L BUN 55 H (9-20) mg/dL Creatinine 4.83 H (0.66-1.25) mg/dL Calcium 8.2 L (8.4-10.2) mg/dL Assessment and Plan Plan: Assessment: 1. Acute kidney injury secondary to ATN secondary to hypotension, further worsened with the use of lisinopril. Creatinine 1.56 on admission and is stable at 4.83 today. Nonoliguric. No hydronephrosis noted on kidney ultrasound. 2. Chronic kidney disease stage IIIB with baseline creatinine near 1.5 secondary to nephrosclerosis and solitary kidney. 3. Right renal mass status post nephrectomy 07/10/2023. 4. Hyperkalemia secondary to acute kidney injury, acidosis and lisinopril. Improved. 5. Metabolic acidosis secondary to acute kidney injury and IV fluids. On oral bicarbonate. 6. Hyponatremia secondary to acute kidney injury and hypotonic fluid infusion. Plan: Maintain IV fluids. Lisinopril discontinued 07/12/2023. Avoid nephrotoxins. Continue to monitor renal function and urine output. Maintain current antihypertensives. Hold for systolic blood pressure less than 120. Maintain lokelma for now.
[2023-07-15] MEDS: SODIUM ZIRCONIUM CYCLOSILICATE 10 GM PACKET PO SCH (12:55)
[2023-07-15] MEDS: HYDROmorphone 1 MG/ML 1 ML SYRINGE IVP PRN (14:59)
[2023-07-16] MEDS: HEPARIN SODIUM,PORCINE 5,000 UNIT/ML 1 ML VIAL SQ SCH ×3 (00:16→16:19)
[2023-07-16] MEDS: SODIUM BICARBONATE TAB 650 MG TAB PO SCH ×2 (07:28→16:52)
[2023-07-16] MEDS: TAMSULOSIN 0.4 MG CAP.ER.24H PO SCH (07:29)
[2023-07-16] MEDS: amLODIPine 5 MG TAB PO SCH (07:29)
[2023-07-16] MEDS: hydrALAZINE HCL 25 MG TAB PO SCH ×2 (07:29→16:52)
[2023-07-16] MEDS: methocarbamoL 750 MG TAB PO SCH ×2 (07:30→13:49)
[2023-07-16] MEDS: SODIUM ZIRCONIUM CYCLOSILICATE 10 GM PACKET PO SCH (07:30)
[2023-07-16] MEDS: HYDROmorphone 1 MG/ML 1 ML SYRINGE IVP PRN (07:37)
[2023-07-16 08:13] VITALS: TEMP 97.7
[2023-07-16 08:49] LABS: Magnesium 1.8 mg/dL (1.5-2.4)
[2023-07-16 08:50] LABS: BUN/Creat Ratio 13.37 Ratio (12.00-20.00); Blood Urea Nitrogen 61.5 mg/dL (9.0-27.0); Calcium 8.4 mg/dL (8.7-10.3); Carbon Dioxide 20.4 mmol/L (21.6-31.8); Chloride 106 mmol/L (96-109); Glucose 100 mg/dL (70-110); Potassium 4.8 mmol/L (3.5-5.5); Sodium 138 mmol/L (135-145)
--- NOTE | 2023-07-16 08:53 | P.PN ---
Subjective Progress Note Date: 07/16/23 Principal diagnosis: POD #6, s/p right radical nephrectomy The patient has no complaints at this time. He is tolerating diet, without nausea or vomiting. He is ambulating without difficulty. He has had bowel movements. Objective - Vital Signs Vital signs: Vital Signs Temp 97.7 F 07/16/23 07:06 Pulse 104 H 07/16/23 07:06 Resp 16 07/16/23 07:06 BP 145/73 07/16/23 07:06 Pulse Ox 95 07/16/23 08:03 FiO2 Intake & Output 07/15/23 07/16/23 07/16/23 18:59 06:59 18:59 Intake Total 350 Output Total 1350 Balance -1000 Intake: Oral 350 Output: Urine 1350 Other: Voiding Method Indwelling Catheter Indwelling Catheter # Voids 1 - Constitutional General appearance: Present: average body habitus, no acute distress - Gastrointestinal Gastrointestinal Comment(s): Soft, non-distended. Incision clean, dry, and intact. - Genitourinary Genitourinary Comment(s): Babin catheter is in place, draining clear yellow urine. - Psychiatric Psychiatric: Present: A&O x's 3 - Labs CBC & Chem 7: 07/13/23 06:53 07/16/23 05:01 Labs: Abnormal Lab Results - Last 24 Hours (Table) 07/15/23 07/16/23 Range/Units 07:21 05:01 Sodium 132 L (137-145) mmol/L Carbon Dioxide 18 L 20.4 L (22-30) mmol/L BUN 55 H 61.5 H (9-20) mg/dL Creatinine 4.83 H 4.6 H (0.66-1.25) mg/dL Est GFR (CKD-EPI) 12 L (>=60) Calcium 8.2 L 8.4 L (8.4-10.2) mg/dL Assessment and Plan (1) Right renal mass Current Visit: Yes Status: Acute Code(s): N28.89 - OTHER SPECIFIED DISORDERS OF KIDNEY AND URETER SNOMED Code(s): 413201321 Plan: S/P open right radical nephrectomy -The patient is urologically stable for discharge. The Babin catheter will be removed prior to discharge.
--- NOTE | 2023-07-16 12:52 | P.PN ---
Subjective Patient is seen for follow-up for acute kidney injury post right nephrectomy. Good urine output Serum creatinine decreased to 4.6 from 4.8 yesterday. Overall patient feels well and wants to go home. Objective - Vital Signs Vital signs: Vital Signs Temp 97.7 F 07/16/23 07:06 Pulse 104 H 07/16/23 07:06 Resp 16 07/16/23 07:06 BP 145/73 07/16/23 07:06 Pulse Ox 95 07/16/23 08:03 FiO2 Intake & Output 07/15/23 07/16/23 07/16/23 18:59 06:59 18:59 Intake Total 350 Output Total 1350 Balance -1000 Intake: Oral 350 Output: Urine 1350 Other: Voiding Method Indwelling Catheter Indwelling Catheter # Voids 1 - Exam Patient is awake, alert oriented 3 No acute distress Examination of the heart S1 and S2 Examination of the lungs bilateral breath sounds are heard Abdomen is soft nontender, incision is intact with kailey. Examination of lower extremities shows no evidence of edema MEDICAL AIDE exam grossly intact - Labs CBC & Chem 7: 07/13/23 06:53 07/16/23 05:01 Labs: Abnormal Lab Results - Last 24 Hours (Table) 07/16/23 Range/Units 05:01 Carbon Dioxide 20.4 L (21.6-31.8) mmol/L BUN 61.5 H (9.0-27.0) mg/dL Creatinine 4.6 H (0.6-1.5) mg/dL Est GFR (CKD-EPI) 12 L (>=60) Calcium 8.4 L (8.7-10.3) mg/dL Assessment and Plan Assessment: 1. Acute kidney injury secondary to ATN secondary to hypotension, further worsened with the use of lisinopril. Creatinine 1.56 on admission, peaked at 4.9 and is down to 4.6 today. Nonoliguric. No hydronephrosis noted on kidney ultrasound. 2. Chronic kidney disease stage IIIB with baseline creatinine near 1.5 secondary to nephrosclerosis and solitary kidney. 3. Right renal mass status post nephrectomy 07/10/2023. 4. Hyperkalemia secondary to acute kidney injury, acidosis and lisinopril. Improved. 5. Metabolic acidosis secondary to acute kidney injury and IV fluids. On oral bicarbonate. 6. Hyponatremia secondary to acute kidney injury and hypotonic fluid infusion. Now improved. Plan: Can't DC Babin catheter Okay to discharge from nephrology standpoint Follow-up in the office in about 1 week Follow-up with urology as well.
--- NOTE | 2023-07-16 14:00 | P.DS ---
Providers Date of admission: 07/10/23 07:24 Expected date of discharge: 07/16/23 Attending physician: Hay Talamantes MD Consults: 07/12/23 08:29 Consult Physician Routine Consulting Provider: Chapincito Faye Consult Reason/Comments: elevated creatinine Do you want consulting provider notified?: Yes Primary care physician: [facility] - Discharge Diagnosis(es) (1) Right renal mass Current Visit: Yes Status: Acute Hospital Course: On the day of admission, the patient underwent an uncomplicated open right radical nephrectomy. The perioperative course was unremarkable. However, the patient's serum creatinine level carola significantly to a high of 4.92. It had improved somewhat to 4.6 at the time of discharge. The patient remained afebrile. He was tolerating diet at the time of discharge, and ambulating without difficulty. Procedures: Open right radical nephrectomy on 07/10/2023 Patient Condition at Discharge: Fair Plan - Discharge Summary Discharge Rx Participant: No New Discharge Prescriptions: New Tamsulosin [Flomax] 0.4 mg PO DAILY #30 cap HYDROcodone/APAP 5-325MG [[place] 5-325] 1 tab PO Q4HR PRN 3 Days #18 tab PRN Reason: Pain No Action Barnes 3 (Unk) 1 tab PO DAILY Vit D(Unk) 1 tab PO DAILY Tamsulosin HCl [Flomax] 1 tab PO DAILY Lisinopril (Unk) 20 mg PO DAILY Discharge Medication List Lisinopril (Unk) 20 mg PO DAILY 07/09/23 [History] Barnes 3 (Unk) 1 tab PO DAILY 07/09/23 [History] Tamsulosin HCl [Flomax] 1 tab PO DAILY 07/09/23 [History] Vit D(Unk) 1 tab PO DAILY 07/09/23 [History] HYDROcodone/APAP 5-325MG [[place] 5-325] 1 tab PO Q4HR PRN 3 Days #18 tab 07/15/23 [Rx] Tamsulosin [Flomax] 0.4 mg PO DAILY #30 cap 07/15/23 [Rx] Follow up Appointment(s)/Referral(s): Lanette Phillips MD [STAFF PHYSICIAN] - 1 Week Hay Talamantes MD [STAFF PHYSICIAN] - 1 Week Patient Instructions/Handouts: Nephrectomy (DC) Activity/Diet/Wound Care/Special Instructions: [facility] is arranging for home care services. Please call [phone] if you do not hear from a home care agency within 48 hours of discharge. No heavy lifting or straining You may shower no baths Discharge Disposition: HOME SELF-CARE
[2023-07-16 16:25] VITALS: BP 149/79; PULSE 105; RESP 18
== END 2023-07-16 17:31 | disposition home or self-care (01) | DRG 656 ==
LOC: OR 05:40 → 4SSUR 07:24
PROVIDERS: ADMIT Urology; ATTEND Urology
PROC: 0TT00ZZ Resection of Right Kidney, Open Approach (ICD-10-PCS; principal; 2023-07-10 07:00)
DX: C64.1 Malignant neoplasm of right kidney, except renal pelvis (principal); N17.0 Acute kidney failure with tubular necrosis; E87.1 Hypo-osmolality and hyponatremia; E87.20 Acidosis, unspecified; E87.5 Hyperkalemia; N18.32 Chronic kidney disease, stage 3b; I12.9 Hypertensive chronic kidney disease with stage 1 through stage 4 chronic kidney disease, or unspecified chronic kidney disease; Z87.891 Personal history of nicotine dependence; Z28.310 Unvaccinated for COVID-19; Z88.0 Allergy status to penicillin; Z86.718 Personal history of other venous thrombosis and embolism; Z28.21 Immunization not carried out because of patient refusal; M19.90 Unspecified osteoarthritis, unspecified site; Z79.899 Other long term (current) drug therapy
CPT/HCPCS: 76770; 80048; 81001; 83735; 84132; 85025; 85027; 85610; 85730; 88307; 94760

== ENCOUNTER → 2024-02-14 | Outpatient (CLI) | payer OTHER ==
[2024-02-14 15:58] LABS: Basophils # (A) 0.05 X 10*3/uL (0.00-0.10); Basophils % (A) 0.4 %; Eosinophils # (A) 0.34 X 10*3/uL (0.04-0.35); HCT 36.1 % (39.6-50.0); HGB 11.7 g/dL (13.0-17.0); Lymphocytes # (A) 2.38 X 10*3/uL (0.90-5.00); Lymphocytes % (A) 20.9 %; MCH 30.9 pg (27.0-32.0); MCHC 32.4 g/dL (32.0-37.0); MCV 95.3 FL (80.0-97.0); Mean Platelet Volume 10.9 FL (9.5-12.2); Monocytes % (A) 6.1 %; NRBC Per 100 WBC 0 X 10*3/uL (0.00-0.01); Neutrophils # (A) 7.89 X 10*3/uL (1.80-7.70); Neutrophils % (A) 69.2 %; Platelet Count 272 X 10*3/uL (140-440); RBC 3.79 X 10*6/uL (4.40-5.60); RDW 12.9 % (11.5-14.5); WBC 11.41 X 10*3/uL (4.50-10.00)
[2024-02-14 16:15] LABS: % Iron Saturation 26.98 (15.00-50.00); BUN/Creat Ratio 22.23 Ratio (12.00-20.00); Blood Urea Nitrogen 57.8 mg/dL (9.0-27.0); Calcium 9.4 mg/dL (8.7-10.3); Carbon Dioxide 22.9 mmol/L (21.6-31.8); Chloride 103 mmol/L (96-109); Glucose 89 mg/dL (70-110); Iron 68 UG/DL (65-175); Potassium 4.9 mmol/L (3.5-5.5); Sodium 138 mmol/L (135-145); Total Iron Binding Capacity 252 UG/DL (228-460)
[2024-02-14 20:14] LABS: Appearance,Urine Clear (Clear); Bilirubin,Urine Negative (Negative); Blood,Urine Negative (Negative); Color,Urine Yellow (Yellow); Ketones,Urine Negative (Negative); Nitrite,Urine Negative (Negative); Urobilinogen,Urine 0.2 E.U./DL
== END | disposition home or self-care (01) ==
LOC: LABWHC1 09:29
PROVIDERS: ATTEND Internal Medicine Nephrology
DX: N18.4 Chronic kidney disease, stage 4 (severe) (principal)
CPT/HCPCS: 36415; 80048; 81003; 82040; 82728; 83540; 83550; 85025

== ENCOUNTER → 2024-02-28 | Outpatient (CLI) | payer OTHER ==
--- NOTE | 2024-02-28 11:35 | CT ---
EXAMINATION TYPE: CT brain wo con DATE OF EXAM: 02/28/2024 COMPARISON: None INDICATION: dizziness DLP: 1047.1 mGycm, Automated exposure control for dose reduction was used. CONTRAST: None CT of the brain is performed utilizing 3 mm thick sections through the posterior fossa and 3 mm thick sections through the remaining calvarium. Study is performed within 24 hours of arrival to the hosp ital. No abnormal hyperdensity is present to suggest an acute intracranial hemorrhage. No mass lesion is evident. No acute infarcts are evident. Mild periventricular white matter hypodensity is present, likely on th e basis of chronic white matter ischemic changes Ventricles and sulci are appropriate for the patient age. Paranasal sinuses and mastoid air cells within the [id number] are clear. IMPRESSION: 1. No acute intracranial process. Follow-up MRI can be performed as clinically indicated. 2. Suggestion of minimal periventricular white matter ischemic-type changes.
== END | disposition home or self-care (01) ==
LOC: RADCTMAIN 11:04
PROVIDERS: ATTEND Family Medicine
DX: I67.82 Cerebral ischemia (principal); R42 Dizziness and giddiness
CPT/HCPCS: 70450

== ENCOUNTER → 2024-11-04 | Outpatient (CLI) | payer OTHER ==
--- NOTE | 2024-11-04 14:08 | CT ---
EXAMINATION TYPE: CT abdomen pelvis wo con DATE OF EXAM: 11/04/2024 COMPARISON: CT abdomen and pelvis from an outside institution dated 06/04/2023 CLINICAL INDICATION: Male, 79 years old with history of renal cell ca; PHH, Hx renal cell carcinoma, Rt nephrectomy TECHNIQUE: CT scan of the abdomen and pelvis is performed without oral or IV contrast. CT DLP: 323.[address] CTDI: mGy Automated exposure control for dose reduction was used. FINDINGS: Within the limitations of a non-contrast study, the following observations are made. The lungs are clear. There is surgical absence of the gallbladder. There is no biliary ductal dilatation. There is no organomegaly of the liver, pancreas, spleen or adrenal glands. There has been a right nephrectomy. Left kidney is unremarkable without calcification or hydronephros is. The caliber of the abdominal aorta is normal and there is no retroperitoneal adenopathy or hemorrhage . The bowel loops are normal in caliber is no evidence of obstruction. No inflammatory changes are iden tified in the mesentery and there is no free intraperitoneal air or fluid. There is no pelvic mass, free fluid, abscess or adenopathy. There is moderate prostatic hypertrophy. There is no focal osseous lesion. There is moderate degenerative disease throughout the lumbar spine. 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 IMPRESSION: 1. Postsurgical changes of cholecystectomy and right nephrectomy. 2. Moderate prostatic hypertrophy. 3. No acute changes within the abdomen or pelvis. [facility], , 11/04/2024 2:05 PM
== END | disposition home or self-care (01) ==
LOC: RADCTMAIN 11:23
PROVIDERS: ATTEND Family Medicine
DX: N40.0 Benign prostatic hyperplasia without lower urinary tract symptoms (principal); Z85.528 Personal history of other malignant neoplasm of kidney; Z90.5 Acquired absence of kidney; Z90.49 Acquired absence of other specified parts of digestive tract
CPT/HCPCS: 74176